=== PATIENT | female | born 1930 | race Caucasian/White ===

== ENCOUNTER 2016-12-03 12:31 | Emergency (ER) | payer OTHER ==
[2016-12-03 12:41] VITALS: PULSE 88; BMI 22.8
[2016-12-03 13:50] LABS: BASOPHIL 1.3 % (0-2.0); EOSINOPHIL 4.7 % (0-4.5); MCH 31.5 pg (25.7-33.7); MEAN CELL VOLUME 95.4 fl (80-96); MEAN PLT VOLUME 9.2 fl (7.5-11.1); NEUTROPHILS 68.8 % (42.8-82.8); PLATELET COUNT 165 K/MM3 (134-434); RDW 13.7 % (11.6-15.6); WHITE BLOOD COUNT 10.9 K/mm3 (4.0-10.0)
--- NOTE | 2016-12-03 13:54 | PDOC ---
History of Present Illness - General Chief Complaint: Weakness Stated Complaint: LETHARGIC, DIZZINESS Time Seen by Provider: 12/03/16 12:58 History Source: Patient Exam Limitations: No Limitations - History of Present Illness Initial Comments: 12/03/16 13:49 86-year-old female presents the ED with complaints of generalized fatigue, decreased appetite, headache, cough, difficulty breathing, diarrhea, dysuria, or rash. Daughter states patient has had difficulty with ambulation despite using a walker that she uses daily. Timing/Duration: getting worse Severity: moderate Associated Symptoms: reports: loss of appetite, malaise, weakness. denies: fever/chills Past History - Past Medical History Allergies/Adverse Reactions: Allergies Allergy/AdvReac Type Severity Reaction Status Date / Time iodine Allergy Verified 01/26/15 10:35 Home Medications: Ambulatory Orders Aspirin [ASA -] 81 mg PO DAILY 12/03/16 Cyanocobalamin [Vitamin B12 -] 100 mcg PO DAILY 12/03/16 Docusate Sodium [Colace -] 100 mg PO BID 12/03/16 Folic Acid 1 mg PO DAILY 12/03/16 Levothyroxine [Synthroid -] 50 mcg PO DAILY 12/03/16 Sennosides [Senna] 8.6 mg PO DAILY 12/03/16 Simvastatin [Zocor -] 40 mg PO HS 12/03/16 Thiamine HCl [B-1] 100 mg PO DAILY 12/03/16 Cancer: Yes (hx of colon) Cardiac Disorders: Yes (mi 11/06) 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)) GI Disorders: (ischemic colitis,h/o small bowel obstruction) HTN: Yes Hypercholesterolemia: Yes - Surgical History Abdominal Surgery: Yes (for colon cancer) Cardiac Surgery: Yes (aaa repair stent) - Psycho/Social/Smoking Cessation Hx Anxiety: No Suicidal Ideation: No Smoking Status: No Smoking History: Former smoker Have you smoked in the past 12 months: No Number of Cigarettes Smoked Daily: 0 If you are a former smoker, when did you quit?: 2yrs Information on smoking cessation initiated: No Hx Alcohol Use: No Drug/Substance Use Hx: No Substance Use Type: None Hx Substance Use Treatment: No Patient Lives Alone: No Lives with/in: (daughter) Review of Systems - Review of Systems Able to Perform ROS?: Yes Constitutional: Yes: Loss of Appetite, Weakness HEENTM: No: Symptoms Reported Respiratory: No: Symptoms reported Cardiac (ROS): No: Symptoms Reported ABD/GI: Yes: Poor Appetite : No: Symptoms Reported Musculoskeletal: No: Symptoms Reported Integumentary: No: Symptoms Reported Neurological: Yes: Weakness Endocrine: No: Symptoms Reported Hematologic/Lymphatic: No: Symptoms Reported *Physical Exam - Vital Signs Last Vital Signs Temp Pulse Resp BP Pulse Ox 98.5 F 88 20 127/63 98 12/03/16 12:35 12/03/16 12:35 12/03/16 12:35 12/03/16 12:35 12/03/16 12:35 - Physical Exam General Appearance: Yes: Nourished, Appropriately Dressed. No: Apparent Distress HEENT: positive: EOMI, DARNELL. negative: Pale Conjunctivae Neck: positive: Normal Thyroid, Supple Respiratory/Chest: positive: Lungs Clear, Normal Breath Sounds. negative: Respiratory Distress, Accessory Muscle Use Cardiovascular: positive: Regular Rhythm, Regular Rate. negative: Murmur Gastrointestinal/Abdominal: positive: Soft. negative: Tenderness Extremity: positive: Normal Capillary Refill. negative: Pedal Edema Integumentary: positive: Normal Color, Dry, Warm Neurologic: positive: Motor Strength 5/5 (ambulatory) ED Treatment Course - LABORATORY CBC & Chemistry Diagram: 12/03/16 13:30 12/03/16 13:30 - RADIOLOGY Radiology Studies Ordered: Category Date Time Status CHEST X-RAY PORTABLE* [RAD] Stat Radiology 12/03/16 13:37 Completed Medical Decision Making - Medical Decision Making 12/03/16 13:52 Patient with complaints of fatigue, decreased appetite and decreased ambulation. Daughter states normally when this happens patient has concern for urinary tract infection or dehydration. On exam patient had no acute findings but was ordered for chest x-ray, labs, urine, and IV fluids. 12/03/16 16:39 Laboratory Tests 12/03/16 16:02 Urine Blood 1+ H Ur Leukocyte Esterase Trace H D Urine RBC 6 Urine WBC 2 12/03/16 16:39 Laboratory Tests 05/01/14 01/26/15 12/03/16 06:00 10:52 13:30 WBC 10.9 H D Hgb 12.1 D Hct 36.7 Plt Count 165 Neutrophils % 68.8 Monocytes % 11.3 H Eosinophils % 4.7 H Sodium Potassium Chloride Carbon Dioxide Anion Gap BUN Creatinine 1.6 H 1.6 H Random Glucose Lactic Acid Calcium Magnesium Total Bilirubin AST ALT Alkaline Phosphatase Creatine Kinase Troponin I Albumin 12/03/16 12/03/16 13:30 13:30 WBC Hgb Hct Plt Count Neutrophils % Monocytes % Eosinophils % Sodium 140 Potassium 5.1 Chloride 107 Carbon Dioxide 27 D Anion Gap 6 L BUN 36 H Creatinine 1.4 H Random Glucose 89 D Lactic Acid 0.890 Calcium 9.1 Magnesium 2.1 Total Bilirubin 0.5 AST 47 H D ALT 23 D Alkaline Phosphatase 126 H D Creatine Kinase 83 Troponin I 0.03 Albumin 3.1 L Patient states is feeling better after eating crackers and having water. Patient will be discharged home with her daughter. Patient encouraged to eat frequent small meals and drink plenty of fluids *DC/Admit/Observation/Transfer Diagnosis at time of Disposition: Weakness - Discharge Dispostion Disposition: HOME Condition at time of disposition: Improved - Referrals Referrals: Phani Randle MD [Primary Care Provider] - - Patient Instructions Printed Discharge Instructions: DI for Muscle Weakness Additional Instructions: Please eat small and frequent meals. Please follow up with your physician.
[2016-12-03 14:30] LABS: ALBUMIN 3.1 g/dl (3.4-5.0); BILIRUBIN,TOTAL 0.5 mg/dL (0.2-1.0); CALCIUM 9.1 mg/dL (8.5-10.1); CREATININE 1.4 mg/dL (0.55-1.02); MAGNESIUM 2.1 mg/dL (1.8-2.4)
[2016-12-03 14:33] LABS: TROPONIN I 0.03 ng/ml (0.00-0.05)
--- NOTE | 2016-12-03 14:33 | EKG ---
Test Reason : Blood Pressure : / mmHG Vent. Rate : 070 BPM Atrial Rate : 070 BPM P-R Int : 176 ms QRS Dur : 072 ms QT Int : 376 ms P-R-T Axes : 066 025 063 degrees QTc Int : 406 ms NORMAL SINUS RHYTHM POSSIBLE LEFT ATRIAL ENLARGEMENT Confirmed by MYA ARAUJO MD ([id number]) on 12/03/2016 2:32:58 PM Referred By: Confirmed By:MYA ARAUJO MD
[2016-12-03 16:19] LABS: URINE APPEARANCE CLEAR; URINE BILIRUBIN NEGATIVE (NEGATIVE); URINE BLOOD 1+ (NEGATIVE); URINE COLOR LTYELLOW; URINE GLUCOSE (UA) NEGATIVE (NEGATIVE); URINE KETONE NEGATIVE (NEGATIVE); URINE LEUK ESTERASE TRACE (NEGATIVE); URINE NITRITE NEGATIVE (NEGATIVE); URINE PROTEIN NEGATIVE (NEGATIVE); URINE UROBILINOGEN NEGATIVE E.U./dl (0.2-1.0)
[2016-12-03 16:21] LABS: URINE HYALINE CAST 1 /lpf; URINE MUCUS RARE; URINE RBC 6 /hpf (0-3); URINE WBC 2 /hpf (3-5)
[2016-12-03 18:09] VITALS: BP 124/67; TEMP 98
== END 2016-12-03 18:05 | disposition home or self-care (01) ==
LOC: JER 12:31
DX: M62.81 Muscle weakness (generalized) (principal); I25.2 Old myocardial infarction; I10 Essential (primary) hypertension; Z87.891 Personal history of nicotine dependence; E03.9 Hypothyroidism, unspecified; Z86.73 Personal history of transient ischemic attack (TIA), and cerebral infarction without residual deficits; G30.9 Alzheimer's disease, unspecified; F02.80 Dementia in other diseases classified elsewhere, unspecified severity, without behavioral disturbance, psychotic disturbance, mood disturbance, and anxiety; Z85.038 Personal history of other malignant neoplasm of large intestine
CPT/HCPCS: 36415; 71010-TC; 80053; 81003; 81015; 82550; 83605; 83735; 84484; 85025; 87086; 93005; 93010; 99283-25